=== PATIENT | male | born 1945 | race Caucasian/White ===

== ENCOUNTER 2018-02-21 07:14 | Inpatient (IN) | payer OTHER, MEDICARE ==
[2018-02-14 14:44] LABS: BASOPHILS % (AUTO) 0.5 % (0-1); EOSINOPHILS # (AUTO) 0.3 X10'3 (0-0.9); EOSINOPHILS % (AUTO) 3.5 % (0-6); LYMPHOCYTES # (AUTO) 3.4 X10'3 (1.1-4.8); LYMPHOCYTES % (AUTO) 35.9 % (21-51); MEAN CORPUSCULAR HEMOGLOBIN 31.8 PG (27.0-31.0); MEAN CORPUSCULAR HGB CONC 33.7 % (33.0-36.5); MEAN CORPUSCULAR VOLUME 94.4 FL (78-98); MEAN PLATELET VOLUME 9.7 FL (7.4-10.4); MONOCYTES # (AUTO) 0.6 X10'3 (0-0.9); NEUTROPHILS # (AUTO) 5.2 X10'3 (1.8-7.7); NEUTROPHILS % (AUTO) 54.1 % (42-75); PRE OP HEMATOCRIT 41.1 % (42.0-52.0); PRE OP HEMOGLOBIN 13.8 g/dL (14.0-17.9); PRE OP PLATELET COUNT 157 X10'3 (140-440); RED BLOOD COUNT 4.35 X10'6 (4.70-6.10); RED CELL DISTRIBUTION WIDTH 15.1 % (11.5-14.5)
[2018-02-14 14:56] LABS: HEMOGLOBIN A1C 6.4 % (4.5-6.2)
[2018-02-14 14:59] LABS: ALBUMIN 3.9 G/DL (3.4-5.0); ALBUMIN/GLOBULIN RATIO 1.3 (1.1-1.5); ALKALINE PHOSPHATASE 73 IU/L (46-116); BLOOD UREA NITROGEN 19 MG/DL (7-18); BUN/CREATININE RATIO 13.2 (5.4-32.0); CALCIUM 8.5 MG/DL (8.5-10.1); CHLORIDE 105 MMOL/L (99-107); CREATININE 1.44 MG/DL (0.60-1.10); PRE OP ALT 45 U/L (30-65); PRE OP ANION GAP 4 (8-16); PRE OP AST 23 U/L (10-37); PRE OP BILIRUB, TOTAL 0.5 MG/DL (0.0-1.0); PRE OP GLUCOSE 117 MG/DL (70-104); PRE OP POTASSIUM 3.9 MMOL/L (3.4-5.1); PRE OP SODIUM 138 MMOL/L (135-145); TOTAL CARBON DIOXIDE 29.2 MMOL/L (24-32); eGFR 48 ML/MIN
[2018-02-21] VITALS (21 sets, daily range): BP systolic 89–143; BP diastolic 42–94
[~2018-02-21] VITALS: Ht 180.3 cm; Wt 114.3 kg
[~2018-02-21 07:14] MED LIST: ASPI-1071 PO; ATOR80TA PO; BUSP15TA3 PO; CALC-212 PO; CHOL200074 PO; Cefazolin 2GM/50ML dext iso,osmotic IVPB IV ONE; DOCUMENT DATE & TIME OF BETA-BLOCKER PO ONE; HYDR25TA4 PO; LISI-642 PO; METO-411 PO; MOME220A3 INH; OMEP20TA5 PO; SERT100T PO; TERA5CAP4 PO; famotidine 20mg tablet PO ONE; ringers solution, lacted 1,000 ML IV SCH; vancomycin inj 1,500 MG in normal saline 300ml IV soln IV ONE
[2018-02-21] MEDS ORDERED: ketorolac trometh. 30mg/ml inj. ONE (08:39)
[2018-02-21] MEDS ORDERED: ROPIVAcaine 0.5% (5mg/ml) 30ml vial ONE ×2 (08:39→11:42)
[2018-02-21] MEDS ORDERED: vancomycin 1,000mg inj ONE (08:40)
[2018-02-21] MEDS ORDERED: albuterol 2.5 MG/3 ML nebule NEB ONE (08:45)
[2018-02-21] MEDS ORDERED: tranexamic acid inj. 1,100 MG in normal saline 100ml IV soln 89 ML IV ONE ×4 (09:15)
[2018-02-21] MEDS ORDERED: fentaNYL/PF 50MCG/1 ML 2ML syringe ONE (09:46)
[2018-02-21] MEDS ORDERED: morphine /PF 1mg/ml 10ml inj. ONE (09:46)
[2018-02-21] MEDS ORDERED: MIDAZolam 1mg/ml 10ml vial ONE (09:46)
[2018-02-21] MEDS ORDERED: BUPIVAcaine/PF 7.5mg/ml (0.75%) 10ml vial ONE (09:48)
[2018-02-21] MEDS ORDERED: LIDOcaine 1%/PF 5ML 10 MG/ML VIAL ONE (10:11)
[2018-02-21] MEDS ORDERED: propofol inj 20 ML IV ONE (10:11)
[2018-02-21] MEDS ORDERED: morphine 4 MG/ML inj SYRINge IV PRN ×2 (11:50)
[2018-02-21] MEDS ORDERED: meperidine/PF 25mg/ml syringe IV PRN ×3 (11:50)
[2018-02-21] MEDS ORDERED: ringers solution, lacted 1,000 ML IV SCH (11:50)
[2018-02-21] MEDS ORDERED: ondansetron/PF 4mg/2ml inj IV PRN ×3 (11:50→12:50)
[2018-02-21] MEDS ORDERED: proCHLORperazine 10 MG/2 ml inj IV PRN (11:50)
[2018-02-21 11:53] LABS: APPEARANCE,SYNOVIAL FLUID BLOODY; COLOR,SYNOVIAL FLUID RED; LYMPHOCYTES,SYNOVIAL FLUID 22 % (0-75); MONOCYTES,SYNOVIAL FLUID 2 % (0-0); SYN RBC 81000 /CU MM (0); SYN WBC 17 /CU MM (0-200)
[2018-02-21 11:54] LABS: NEUTROPHILS,SYNOVIAL FLUID 76 % (0-25)
[2018-02-21] MEDS ORDERED: diphenhydrAMINE 25mg capsule PO PRN ×2 (12:35)
[2018-02-21] MEDS ORDERED: bisacodyl 10mg suppository rectal RC PRN (12:35)
[2018-02-21] MEDS ORDERED: HYDROmorphone inj. 0.5 MG/0.5 ML DISP.SYRIN IV PRN ×2 (12:35)
[2018-02-21] MEDS ORDERED: acetaminophen 325mg tablet PO PRN (12:35)
[2018-02-21] MEDS ORDERED: oxyCODONE IR 5mg (immed. release) tablet PO PRN (12:35)
[2018-02-21] MEDS ORDERED: magnesium hydroxide 30ml (MOM) UD suspension PO PRN (12:35)
[2018-02-21] MEDS ORDERED: naloxone 2mg/2ml inj 2 MG in normal saline 500ml IV soln 500 ML IV PRN (12:48)
[2018-02-21] MEDS ORDERED: diphenhydrAMINE 50 mg/ml inj IV PRN (12:50)
[2018-02-21] MEDS: busPIRone 15mg tablet PO SCH ×2 (13:00→20:41)
[2018-02-21] MEDS: gabapentin 300mg capsule PO SCH ×2 (13:00→20:41)
[2018-02-21] MEDS: acetaminophen 325mg tablet PO SCH ×2 (14:00→19:58)
[2018-02-21] MEDS ORDERED: tranexamic acid inj. 1,100 MG in normal saline 100ml IV soln 100 ML IV ONE (15:30)
[2018-02-21] MEDS: ceFAZolin 1GM/D5W- ADD-VANTAGE 50 ML IV SCH ×2 (15:58→23:50)
[2018-02-21] MEDS: potassium cl 20mEq in 1/2 NS 1,000 ML IV SCH ×2 (15:59→20:32)
[2018-02-21] MEDS: ketorolac tromethamine 15mg/ml inj. IV SCH ×2 (15:59→19:59)
[2018-02-21] MEDS: calcium carbonate/vitamin D3 tablet PO SCH (19:58)
[2018-02-21] MEDS: sertraline 50mg tablet PO SCH (19:58)
[2018-02-21] MEDS ORDERED: vancomycin/NS 1 GM ADD-VANTAGE 250 ML IV SCH (20:00)
[2018-02-21] MEDS: BUDESONIDE 0.25 MG/2 ML AMPUL.NEB IH SCH (20:30)
[2018-02-21] MEDS: atorvastatin 20mg tablet PO SCH (20:39)
[2018-02-21] MEDS: sennosides 8.6mg tablet PO SCH (20:41)
[2018-02-21] MEDS: terazosin 5mg capsule PO SCH (20:45)
[2018-02-22 02:00] VITALS: BP 108/61
[2018-02-22] MEDS: potassium cl 20mEq in 1/2 NS 1,000 ML IV SCH ×3 (02:22→17:52)
[2018-02-22] MEDS: acetaminophen 325mg tablet PO SCH ×4 (02:22→20:00)
[2018-02-22] MEDS: ketorolac tromethamine 15mg/ml inj. IV SCH ×2 (02:22→07:49)
[2018-02-22] MEDS: oxyCODONE IR 5mg (immed. release) tablet PO PRN ×2 (05:19→11:22)
[2018-02-22 05:42] LABS: BASOPHILS % (AUTO) 0.2 % (0-1); EOSINOPHILS # (AUTO) 0.1 X10'3 (0-0.9); HEMATOCRIT 33.1 % (42.0-52.0); HEMOGLOBIN 11.2 g/dl (14.0-17.9); LYMPHOCYTES # (AUTO) 1.5 X10'3 (1.1-4.8); LYMPHOCYTES % (AUTO) 17.7 % (21-51); MEAN CORPUSCULAR HEMOGLOBIN 31.9 PG (27.0-31.0); MEAN CORPUSCULAR HGB CONC 33.9 % (33.0-36.5); MEAN CORPUSCULAR VOLUME 94.1 FL (78-98); MEAN PLATELET VOLUME 9.9 FL (7.4-10.4); MONOCYTES # (AUTO) 0.8 X10'3 (0-0.9); MONOCYTES % (AUTO) 9.1 % (2-12); NEUTROPHILS # (AUTO) 6.3 X10'3 (1.8-7.7); PLATELET COUNT 120 X10'3 (140-440); RED BLOOD COUNT 3.52 X10'6 (4.70-6.10); RED CELL DISTRIBUTION WIDTH 14.8 % (11.5-14.5); WHITE BLOOD COUNT 8.7 X10'3 (4.5-11.0)
[2018-02-22 06:00] VITALS: BP 106/62
[2018-02-22 06:13] LABS: ANION GAP 7 (8-16); CHLORIDE 108 MMOL/L (99-107); POTASSIUM 5.1 MMOL/L (3.5-5.1); SODIUM 141 MMOL/L (135-145); TOTAL CARBON DIOXIDE 26.3 MMOL/L (24-32)
[2018-02-22] MEDS: aspirin 325mg tablet PO SCH (07:46)
[2018-02-22] MEDS: gabapentin 300mg capsule PO SCH ×3 (07:46→21:16)
[2018-02-22] MEDS: sertraline 50mg tablet PO SCH ×2 (07:46→20:15)
[2018-02-22] MEDS: calcium carbonate/vitamin D3 tablet PO SCH ×2 (07:46→20:14)
[2018-02-22] MEDS: vitamin D (cholecalciferol) 1,000 unit tablet PO SCH (07:46)
[2018-02-22] MEDS: busPIRone 15mg tablet PO SCH ×3 (07:47→21:15)
[2018-02-22] MEDS: pantoprazole 40mg Tablet.DR PO SCH (07:47)
[2018-02-22] MEDS: metoprolol succinate 25mg (24-HOUR) SR. Tablet PO SCH ×2 (07:54→12:13)
[2018-02-22] MEDS: HYDROchlorothiazide 12.5mg capsule PO SCH ×2 (07:54→12:14)
[2018-02-22] MEDS: lisinopril 10 MG tablet PO SCH ×2 (07:55→12:13)
[2018-02-22] MEDS: BUDESONIDE 0.25 MG/2 ML AMPUL.NEB IH SCH ×2 (08:09→20:20)
[2018-02-22 10:00] VITALS: BP 106/62
[2018-02-22 14:00] VITALS: BP 90/46
[2018-02-22] MEDS ORDERED: HYDROcodone/acetaminophen 10/325mg tab PO PRN (16:05)
[2018-02-22] MEDS: HYDROcodone/acetaminophen 10/325mg tab PO PRN (17:31)
[2018-02-22 18:00] VITALS: BP 111/52
[2018-02-22] MEDS: celeCOXIB 100mg capsule PO SCH (20:14)
[2018-02-22] MEDS: terazosin 5mg capsule PO SCH (21:00)
[2018-02-22] MEDS: sennosides 8.6mg tablet PO SCH (21:16)
[2018-02-22] MEDS: atorvastatin 20mg tablet PO SCH (21:16)
[2018-02-22 22:00] VITALS: BP 105/61
[2018-02-23] MEDS: acetaminophen 325mg tablet PO SCH ×2 (02:00→08:22)
[2018-02-23] MEDS: HYDROcodone/acetaminophen 10/325mg tab PO PRN ×3 (03:01→12:55)
[2018-02-23] MEDS: potassium cl 20mEq in 1/2 NS 1,000 ML IV SCH (03:02)
[2018-02-23 05:00] VITALS: BP 119/58
[2018-02-23 05:55] LABS: BASOPHILS % (AUTO) 0.2 % (0-1); EOSINOPHILS # (AUTO) 0.2 X10'3 (0-0.9); EOSINOPHILS % (AUTO) 2.2 % (0-6); HEMATOCRIT 32.7 % (42.0-52.0); HEMOGLOBIN 10.9 g/dl (14.0-17.9); LYMPHOCYTES # (AUTO) 2.5 X10'3 (1.1-4.8); LYMPHOCYTES % (AUTO) 32.3 % (21-51); MEAN CORPUSCULAR HGB CONC 33.5 % (33.0-36.5); MEAN CORPUSCULAR VOLUME 95.5 FL (78-98); MEAN PLATELET VOLUME 9.9 FL (7.4-10.4); MONOCYTES # (AUTO) 0.7 X10'3 (0-0.9); MONOCYTES % (AUTO) 9.2 % (2-12); NEUTROPHILS # (AUTO) 4.3 X10'3 (1.8-7.7); NEUTROPHILS % (AUTO) 56.1 % (42-75); PLATELET COUNT 108 X10'3 (140-440); RED BLOOD COUNT 3.42 X10'6 (4.70-6.10); RED CELL DISTRIBUTION WIDTH 15.1 % (11.5-14.5); WHITE BLOOD COUNT 7.7 X10'3 (4.5-11.0)
[2018-02-23] MEDS ORDERED: ASPI-1 PO (06:47)
[2018-02-23] MEDS: HYDROchlorothiazide 12.5mg capsule PO SCH (08:00)
[2018-02-23] MEDS: lisinopril 10 MG tablet PO SCH (08:00)
[2018-02-23] MEDS: metoprolol succinate 25mg (24-HOUR) SR. Tablet PO SCH (08:00)
[2018-02-23] MEDS: celeCOXIB 100mg capsule PO SCH (08:21)
[2018-02-23] MEDS: calcium carbonate/vitamin D3 tablet PO SCH (08:21)
[2018-02-23] MEDS: busPIRone 15mg tablet PO SCH ×2 (08:21→12:59)
[2018-02-23] MEDS: gabapentin 300mg capsule PO SCH ×2 (08:21→12:59)
[2018-02-23] MEDS: sertraline 50mg tablet PO SCH (08:22)
[2018-02-23] MEDS: aspirin 325mg tablet PO SCH (08:22)
[2018-02-23] MEDS: vitamin D (cholecalciferol) 1,000 unit tablet PO SCH (08:22)
[2018-02-23] MEDS: pantoprazole 40mg Tablet.DR PO SCH (08:35)
[2018-02-23] MEDS: BUDESONIDE 0.25 MG/2 ML AMPUL.NEB IH SCH (09:26)
[2018-02-23] MEDS ORDERED: acetaminophen 325mg tablet PO PRN (12:35)
== END 2018-02-23 13:15 | disposition home health service (06) | DRG 467 ==
LOC: PAS IN 07:14 → EDSTATUS 07:30 → ORTHO 4S 14:21
PROVIDERS: ADMIT Orthopaedic Surgery; ATTEND Orthopaedic Surgery
PROC: 0SRC0J9 Replacement of Right Knee Joint with Synthetic Substitute, Cemented, Open Approach (ICD-10-PCS; 2018-02-21)
PROC: 3E0T3BZ Introduction of Anesthetic Agent into Peripheral Nerves and Plexi, Percutaneous Approach (ICD-10-PCS; 2018-02-21)
PROC: 8E0YXBZ Computer Assisted Procedure of Lower Extremity (ICD-10-PCS; 2018-02-21)
PROC: 0SPC0JZ Removal of Synthetic Substitute from Right Knee Joint, Open Approach (ICD-10-PCS; principal; 2018-02-21 09:40)
DX: T84.092A Other mechanical complication of internal right knee prosthesis, initial encounter (principal); D62 Acute posthemorrhagic anemia; E78.5 Hyperlipidemia, unspecified; I10 Essential (primary) hypertension; Z96.651 Presence of right artificial knee joint; E11.42 Type 2 diabetes mellitus with diabetic polyneuropathy; M24.60 Ankylosis, unspecified joint; I25.10 Atherosclerotic heart disease of native coronary artery without angina pectoris; J44.9 Chronic obstructive pulmonary disease, unspecified; K21.9 Gastro-esophageal reflux disease without esophagitis; N40.0 Benign prostatic hyperplasia without lower urinary tract symptoms; Y79.2 Prosthetic and other implants, materials and accessory orthopedic devices associated with adverse incidents; F32.9 Major depressive disorder, single episode, unspecified; F41.9 Anxiety disorder, unspecified; G47.30 Sleep apnea, unspecified; Z79.899 Other long term (current) drug therapy; Z79.82 Long term (current) use of aspirin; Z87.891 Personal history of nicotine dependence
CPT/HCPCS: 36415; 80051; 80053; 82948; 83036; 85025; 87070; 87075; 87102; 89051; 94640; 94760; 97110; 97116; 97162; 97530; A7000; A9272; C1713; C1758; C1776; J0690; J1885; J2001; J2250; J2274; J2310; J2704; J2795; J3010; J3370; J3490; J7030; J7120